=== PATIENT | female | born 1970 | race African-American/Black ===

== ENCOUNTER 2021-11-29 19:00 | Inpatient (IN) | payer MEDICARE, MEDICAID ==
[~2021-11-29] VITALS: Ht 162.6 cm; Wt 66.8 kg
[~2021-11-29 19:00] MED LIST: KEPP500 PO; LAM25 PO; LORA2VIA34 PO; PHEN100C4 PO; PHEN30TA50 PO
[2021-11-29] MEDS ORDERED: FAMOTIDINE 20MG/2ML VIAL IV STA (19:25)
[2021-11-29] MEDS ORDERED: MAGNESIUM/ALUMINUM HYDROXIDE/SIMETHICONE 30ML UDC PO STA (19:25)
[2021-11-29] MEDS ORDERED: ONDANSETRON HCL 4MG/2ML INJ IV STA (19:25)
[2021-11-29] MEDS ORDERED: SODIUM CHLORIDE 0.9% 1,000 ML IV ONE (19:30)
[2021-11-29] MEDS ORDERED: ACETAMINOPHEN 650MG SUPP PR ONE (21:45)
[2021-11-29] MEDS ORDERED: ACETAMINOPHEN 325MG TABLET PO ONE (21:45)
[2021-11-29 21:47] LABS: BASOPHILS % 0.3 % (0.0-2.0); HEMATOCRIT. 37.3 % (36.0-48.0); LYMPHOCYTES % 15.1 % (20.0-50.0); MEAN CORPUSCULAR HEMOGLOBIN 28.4 pg (28.0-32.0); MEAN CORPUSCULAR VOLUME 88.5 fL (81.0-99.0); MEAN PLATELET VOLUME 9.1 fl (7.4-10.4); NEUTROPHILS % 76.6 % (40.0-76.0); PLATELET 177 x1000/uL (130-400); RED BLOOD CELL COUNT 4.22 mill/uL (4.2-5.4); RED CELL DISTRIBUTION WIDTH 12.8 % (11.6-14.6)
[2021-11-29 21:55] LABS: CHLORIDE 106 mEq/L (98-107)
[2021-11-29 22:14] LABS: HCG SCREEN NEGATIVE
[2021-11-29] MEDS ORDERED: DOXYCYCLINE HYCLATE 100 MG/VIAL IV ONE (22:15)
[2021-11-29] MEDS ORDERED: DOXYCYCLINE 100MG in DEXTROSE 5% WATER 100ML IV NR (22:30)
[2021-11-29] MEDS ORDERED: CEFTRIAXONE 1 G PREMIX 50 ML IV NR (22:30)
[2021-11-29 23:23] LABS: CLARITY URINE CLEAR (CLEAR); COLOR URINE DARK YELLOW (YELLOW); KETONES URINE NEGATIVE (NEGATIVE); LEUKOCYTE ESTERASE URINE 1+ (NEGATIVE); NITRITE URINE POSITIVE (NEGATIVE); OCCULT BLOOD URINE NEGATIVE (NEGATIVE); PROTEIN URINE 3+ (NEGATIVE); SPECIFIC GRAVITY URINE 1.033 (1.005-1.030)
[2021-11-30] MEDS ORDERED: BISACODYL 10MG SUPP PR SCH (07:30)
[2021-11-30] MEDS ORDERED: MORPHINE SULFATE 2 MG/ML CPJ (NOT FOR IM USE) IV PRN (07:30)
[2021-11-30] MEDS ORDERED: LORAZEPAM 2MG/ML CPJ IV PRN (07:30)
[2021-11-30] MEDS ORDERED: ONDANSETRON HCL 4MG/2ML INJ IV PRN (07:30)
[2021-11-30] MEDS ORDERED: HYDROCODONE/ACETAMINOPHEN 5/325MG TABLET PO PRN (07:30)
[2021-11-30] MEDS ORDERED: HYDRALAZINE 20MG/ML VIAL IV PRN (07:30)
[2021-11-30] MEDS ORDERED: CLONIDINE 0.1MG TABLET PO PRN (07:30)
[2021-11-30] MEDS ORDERED: IPRATROPIUM/ALBUTEROL 0.5-3(2.5)MG/3ML NEB HHN PRN (07:30)
[2021-11-30] MEDS ORDERED: DIPHENHYDRAMINE 50MG/ML VIAL IV PRN (07:30)
[2021-11-30] MEDS ORDERED: GUAIFENESIN 200MG/10ML SUGAR FREE UDC PO PRN (07:30)
[2021-11-30] MEDS ORDERED: MAGNESIUM/ALUMINUM HYDROXIDE/SIMETHICONE 30ML UDC PO PRN (08:00)
[2021-11-30] MEDS ORDERED: NALOXONE HCL 0.4MG/ML VIAL IV PRN (08:00)
[2021-11-30] MEDS ORDERED: DOCUSATE SODIUM 100MG CAPSULE PO PRN (09:00)
[2021-11-30] MEDS: ENOXAPARIN 40MG/0.4ML SYR SUBCUT SCH (10:23)
[2021-11-30 10:40] VITALS: BP 112/77
[2021-11-30 12:00] VITALS: BP 114/73
[2021-11-30] MEDS ORDERED: PHENYTOIN SODIUM EXTENDED 100MG CAPSULE PO SCH (12:00)
[2021-11-30] MEDS: LAMOTRIGINE 25MG TABLET PO SCH (12:18)
[2021-11-30] MEDS: LEVETIRACETAM 500MG TABLET PO SCH ×2 (12:18→18:12)
[2021-11-30] MEDS ORDERED: NA PHOS,M-B/NA PHOS,DI-BA ENEMA 118ML PR NR (12:45)
[2021-11-30] MEDS: ACETAMINOPHEN 325MG TABLET PO PRN ×2 (13:01→21:46)
[2021-11-30] MEDS: SODIUM CHLORIDE 0.45% 1,000 ML IV SCH (13:22)
[2021-11-30] MEDS: SODIUM CHLORIDE 0.9% INJ 3ML FLUSH IVF SCH ×2 (14:00→21:47)
[2021-11-30] MEDS: SORBITOL 70% SOLN 30ML PO SCH ×2 (14:59→21:46)
[2021-11-30] MEDS: BISACODYL 10MG SUPP PR SCH (15:00)
[2021-11-30 16:00] VITALS: BP 95/66
[2021-11-30 16:54] LABS: HEPATITIS B SURFACE ANTIGEN NEGATIVE
[2021-11-30 20:30] VITALS: BP 96/57
[2021-11-30] MEDS: PHENYTOIN SODIUM 100MG/2ML VIAL IV SCH (21:46)
[2021-11-30] MEDS ORDERED: CEFTRIAXONE 1,000 MG in DEXTROSE 5% WATER 50 ML IV SCH (23:00)
[2021-11-30 23:30] VITALS: BP 100/60
[2021-12-01] MEDS: SODIUM CHLORIDE 0.45% 1,000 ML IV SCH (03:43)
[2021-12-01 04:30] VITALS: BP 107/69
[2021-12-01] MEDS: SODIUM CHLORIDE 0.9% INJ 3ML FLUSH IVF SCH ×2 (05:38→14:00)
[2021-12-01] MEDS: PHENYTOIN SODIUM 100MG/2ML VIAL IV SCH ×2 (05:38→15:34)
[2021-12-01] MEDS: SORBITOL 70% SOLN 30ML PO SCH ×2 (05:38→15:34)
[2021-12-01 07:25] LABS: BASOPHILS % 0.1 % (0.0-2.0); HEMATOCRIT. 32.5 % (36.0-48.0); HEMOGLOBIN. 10.8 g/dL (12.0-16.0); LYMPHOCYTES % 23.7 % (20.0-50.0); MEAN CORPUSCULAR HEMOGLOBIN 29.3 pg (28.0-32.0); MEAN CORPUSCULAR VOLUME 88.3 fL (81.0-99.0); MEAN PLATELET VOLUME 9.9 fl (7.4-10.4); MONOCYTES % 10.4 % (2.0-8.0); NEUTROPHILS % 65.8 % (40.0-76.0); PLATELET 154 x1000/uL (130-400); RED BLOOD CELL COUNT 3.68 mill/uL (4.2-5.4); RED CELL DISTRIBUTION WIDTH 12.5 % (11.6-14.6)
[2021-12-01 07:40] LABS: CHLORIDE 105 mEq/L (98-107)
[2021-12-01 08:00] VITALS: BP 100/69
[2021-12-01] MEDS: ENOXAPARIN 40MG/0.4ML SYR SUBCUT SCH (09:36)
[2021-12-01] MEDS: LAMOTRIGINE 25MG TABLET PO SCH (09:36)
[2021-12-01] MEDS: LEVETIRACETAM 500MG TABLET PO SCH ×2 (09:36→18:11)
[2021-12-01] MEDS: BISACODYL 10MG SUPP PR SCH (09:37)
[2021-12-01] MEDS: ACETAMINOPHEN 325MG TABLET PO PRN ×2 (10:05→16:03)
[2021-12-01 12:00] VITALS: BP 98/63
[2021-12-01 16:00] VITALS: BP 91/70
[2021-12-01 17:07] VITALS: BP 91/70
== END 2021-12-01 18:32 | disposition home or self-care (01) | DRG 388 ==
LOC: ER 19:00 → MICUSO 23:45 → 6WST 11-30 08:07
PROVIDERS: ADMIT Internal Medicine; ATTEND Internal Medicine
DX: K56.49 Other impaction of intestine (principal); J69.0 Pneumonitis due to inhalation of food and vomit; E46 Unspecified protein-calorie malnutrition; J90 Pleural effusion, not elsewhere classified; R17 Unspecified jaundice; N39.0 Urinary tract infection, site not specified; K59.00 Constipation, unspecified; K44.9 Diaphragmatic hernia without obstruction or gangrene; D64.9 Anemia, unspecified; F79 Unspecified intellectual disabilities; G40.909 Epilepsy, unspecified, not intractable, without status epilepticus; G62.9 Polyneuropathy, unspecified; R74.01 Elevation of levels of liver transaminase levels; Z68.25 Body mass index [BMI] 25.0-25.9, adult; Z20.822 Contact with and (suspected) exposure to COVID-19
CPT/HCPCS: 36415; 71045; 74176; 76700; 80053; 81003; 82248; 83605; 84132; 84703; 85025; 86705; 86709; 86803; 87340; 87426; 93005; 99285; A6261; C1893; J0696; J1165; J1650; J2405; J3490; J7030; J7060